=== PATIENT | male | born 1965 | race American Indian/Alaskan Native ===

== ENCOUNTER 2021-02-23 08:25 | Outpatient (CLI) | payer BC | END 2021-02-23 08:26 | disposition home or self-care (01) | LOC: LABHHL 08:25 | PROVIDERS: ATTEND Otolaryngology Otology & Neurotology | DX: J34.2 Deviated nasal septum (principal); J34.3 Hypertrophy of nasal turbinates; J32.0 Chronic maxillary sinusitis | CPT/HCPCS: 88305; 88307; 88311 ==